=== PATIENT | female | born 1995 ===

== ENCOUNTER 2025-06-05 00:22 | Emergency (ER) | payer BC ==
[2025-06-05] MEDS: Ondansetron 4 MG/2 ML SDV IVPUSH ONE (01:10)
[2025-06-05 01:32] LABS: BASOPHILS ABSOLUTE AUTO 0.1 K/mm3 (0.0-0.2); BASOPHILS PERCENT AUTO 0.4 % (0.0-1.0); EOSINOPHILS ABSOLUTE AUTO 0.2 K/mm3 (0.0-0.4); EOSINOPHILS PERCENT AUTO 1.2 % (0.0-6.0); IMMATURE GRAN ABSOLUTE AUTO 0.08 K/mm3 (0.00-0.05); IMMATURE GRAN PERCENT AUTO 0.5 % (0.0-0.4); LYMPHOCYTES ABSOLUTE AUTO 2.9 K/mm3 (1.0-4.8); LYMPHOCYTES PERCENT AUTO 17.5 % (24.0-44.0); MEAN PLATELET VOLUME 9.4 fl (9.4-12.3); MONOCYTES ABSOLUTE AUTO 0.8 K/mm3 (0.0-0.8); MONOCYTES PERCENT AUTO 5.1 % (0.0-8.0); NEUTROPHILS ABSOLUTE AUTO 12.3 K/mm3 (1.8-7.7); NEUTROPHILS PERCENT AUTO 75.3 % (41.0-71.0); NRBC ABSOLUTE 0.00 (0.00-0.02); NRBC PERCENT 0.0 % (0.0-0.2); PLATELET COUNT,PLT 282 K/mm3 (150-400); RED BLOOD CELL COUNT 4.62 M/mm3 (4.10-5.30); WHITE BLOOD CELL COUNT,WBC 16.32 K/mm3 (3.9-11.3)
[2025-06-05 01:33] LABS: APPEARANCE,URINE CLEAR (Clear); GLUCOSE,URINE NEGATIVE (Negative); OCCULT BLOOD,URINE NEGATIVE (Negative)
[2025-06-05] MEDS: Iopamidol 612 MG/ML 100 ML Bottle IVPUSH ONE (01:40)
[2025-06-05] MEDS: Sodium Chloride 0.9% 10 ML Syringe FLUSH PRN (01:40)
[2025-06-05 01:52] LABS: A/G RATIO 1.4 (1-2); ALANINE AMINOTRANSFERASE,ALT 20.0 U/L (14-59); ASPARTATE AMNIOTRANSFERASE,AST 13.0 U/L (15-37); BILIRUBIN TOTAL 1.3 mg/dL (0.2-1.0); BLOOD UREA NITROGEN,BUN 17.0 mg/dL (7-18); CARBON DIOXIDE,CO2 29.0 mEq/L (21-32); CHLORIDE,CL 102.0 mEq/L (98-107); CREATININE 0.9 mg/dL (0.55-1.02); EST CRCL DRUG DOSING (CG) 70.98 mL/min; ESTIMATED GFR 87.0 mL/min (>60); GLUCOSE RANDOM 95.0 mg/dL (70-99); POTASSIUM,K 3.4 mEq/L (3.5-5.1); PROTEIN TOTAL,TP 7.5 g/dl (6.4-8.2); SODIUM,NA 138.0 mEq/L (136-145)
[2025-06-05] MEDS: Ondansetron 4 MG/2 ML SDV IVPUSH PRN (02:41)
[2025-06-05] MEDS ORDERED: dexmedeTOMIDine HCl 200 MCG/2 ML SDV ONE (06:00)
[2025-06-05] MEDS ORDERED: Propofol 500 MG/50 ML SDV ONE (06:00)
[2025-06-05] MEDS ORDERED: Ketorolac 30 MG/ML SDV ONE (06:00)
[2025-06-05] MEDS ORDERED: Dexamethasone 4 MG/ML 5 ML MDV ONE (06:00)
[2025-06-05] MEDS ORDERED: fentaNYL 250 MCG/5 ML SDV ONE (06:00)
[2025-06-05] MEDS ORDERED: Lactated Ringers 1,000 ML IV ONE (06:00)
[2025-06-05] MEDS ORDERED: EPINEPHrine 1 MG/ML SDV ONE (06:00)
== END 2025-06-05 07:00 | disposition still patient (30) ==
LOC: JD.ED 00:22
DX: K35.80 Unspecified acute appendicitis (principal)
CPT/HCPCS: 36415; 74177; 76857; 80053; 81001; 81025; 85025; 96365; 96375; 96376; 99285; A9270; J0169; J0665; J0694; J1100; J1171; J1885; J2405; J2704; J3010; J7030; J7120; Q9967; J3490

== ENCOUNTER 2025-06-05 06:44 | Day surgery (SDC) | payer BC ==
[~2025-06-05 06:44] MED LIST: Dexamethasone 4 MG/ML 5 ML MDV ONE; Ketorolac 30 MG/ML SDV ONE; dexmedeTOMIDine HCl 200 MCG/2 ML SDV ONE; fentaNYL 250 MCG/5 ML SDV ONE; propofoL 500 MG/50 ML 50 ML ONE
[2025-06-05] MEDS ORDERED: Lactated Ringers 1,000 ML ONE (06:57)
[2025-06-05] MEDS: EPINEPHrine 1 MG/ML SDV ONE (07:40)
[2025-06-05] MEDS ORDERED: Ondansetron 4 MG/2 ML SDV IVPUSH PRN (08:28)
[2025-06-05] MEDS ORDERED: fentaNYL 100 MCG/2 ML SDV IVPUSH PRN (08:28)
== END 2025-06-05 09:44 | disposition home or self-care (01) ==
LOC: JD.SDS 06:44 → EDSTATUS 12:02
PROVIDERS: ATTEND Surgery
DX: Z53.8 Procedure and treatment not carried out for other reasons (principal)
CPT/HCPCS: A9270-GY; J0169; J0665; J1100; J1171; J1885; J2704; J3010; J3490; J7120